=== PATIENT | female | born 1980 | race Caucasian/White ===

== ENCOUNTER 2019-10-14 08:41 | Emergency (ER) | payer MEDICARE, MEDICAID, SELFPAY ==
--- NOTE | ~2019-10-14 | XR_ITS ---
EXAMINATION: XR foot LT min 3V DATE: 10/14/2019 09:06 INDICATION: Left foot plantar surface pain. TECHNIQUE: 4 views of left foot were obtained. COMPARISON: Left foot radiograph 01/01/2018 FINDINGS: There is mild hallux valgus. No fracture. There is a benign bone island in second metatarsa l. Joint spaces are normal. There is an enthesophyte at plantar aspect of calcaneal tuberosity. IMPRESSION: 1. Mild hallux valgus. Reviewed, dictated and finalized at location A. IMPRESSION: 1. Mild hallux valgus.
[2019-10-14 08:51] VITALS: BP 93/63; PULSE 86; RESP 16; TEMP 36.6; O2SAT 100
--- NOTE | 2019-10-14 08:53 | ED.LOWEXIN ---
HPI - Extremity Injury (Lower) General Chief Complaint: Extremity Injury, Lower Stated Complaint: Injury to left foot Time Seen by Provider: 10/14/19 08:53 Source: patient History of Present Illness HPI Narrative: PATIENT PRESENTS WITH LEFT FOOT PAIN. PAIN STARTED ABOUT 3 WEEKS AGO. PATIENT IS UNSURE OF INJURY. PATIENT HAS NO BRUISING NO DEFORMITY NO SWELLING. PATIENT REPORTS PAIN TO THE ARCH AND BOTTOM OF HER FOOT WHEN SHE WALKS ON HER FOOT. MD complaint: foot injury and fall Onset (ago): day(s) (one) Injury: Left: foot Related Data Home Medications Medication Instructions Recorded Confirmed abatacept (with maltose) [Orencia 500 mg IV ONCE 10/14/19 10/14/19 (with maltose)] topiramate 200 mg PO BID 10/14/19 10/14/19 vortioxetine [Trintellix] 20 mg PO DAILY 10/14/19 10/14/19 Allergies Allergy/AdvReac Type Severity Reaction Status Date / Time erythromycin base Allergy Intermediate NAUSEA/VOMI Verified 10/14/19 09:05 TING hydromorphone Allergy Intermediate HIVES, Verified 10/14/19 09:05 HEADACHE, NAUSEA/VOMITING lamotrigine Allergy Intermediate Rash Verified 10/14/19 09:05 Sulfa (Sulfonamide Allergy Intermediate Hives / Verified 10/14/19 09:05 Antibiotics) Red Face glycerin Allergy Unknown Unknown Verified 10/14/19 09:05 acetaminophen AdvReac Intermediate Other Verified 10/14/19 09:05 NSAIDS (Non-Steroidal AdvReac Intermediate Other Verified 10/14/19 09:05 Anti-Inflamma DAIRY PRODUCTS Allergy Unknown Unknown Uncoded 10/14/19 09:05 Review of Systems Review of Systems: Narrative: CONSTITUTIONAL: Denies fever, chills, or sweats. EYES: Denies visual changes, redness, or discharge. ENT: Denies rhinorrhea, congestion, sore throat, or otalgia. CARDIOVASCULAR: Denies chest pain, palpitations, or edema. RESPIRATORY: Denies cough or dyspnea. GASTROINTESTINAL: Denies abdominal pain, nausea, vomiting, or diarrhea. GENITOURINARY: Denies dysuria or hematuria. SKIN: Denies rash or itching. MUSCULOSKELETAL: Denies back pain, joint pain, or myalgia. Pain to the arch and bottom of her left foot. NEUROLOGIC: Denies headache, numbness, or weakness. PSYCHIATRIC: Denies anxiety or depression. All systems reviewed & are unremarkable except as noted in HPI and below Constitutional: Constitutional: Reports as per HPI Eyes: Eyes: Reports as per HPI ENT: Reports system reviewed and no additional complaints, except as documented PMFSH Comments At time of signature, agree with nursing past medical, surgical, social and family history. There is no relevant family history pertinent to the presenting complaint Exam Narrative: Exam Narrative: GENERAL: Well-appearing, well-nourished, and in no acute distress. HEAD: Normocephalic, atraumatic. EYES: PERRLA and EOMI. ENT: Nares clear, no rhinorrhea or epistaxis. Mucous membranes moist. NECK: Supple. CHEST: Clear to auscultation. No respiratory distress. HEART: Regular rate and rhythm. No murmur heard. Normal peripheral pulses. ABDOMEN: Soft, nontender, nondistended, normal active bowel sounds. EXTREMITIES: Normal range of motion. No edema. NORMAL DP PULSE, NORMAL CAP REFILL. NORMAL SENSATION. NVI. NO TENDERNESS TO FOOT SENSATION NVI NORMAL DORSALIS PEDIS PULSE. NORMAL MOVEMETN OF ALL TOES. NORMAL CAPILLARY REFILL. NORMAL SKIN COLOR. NO SKIN LESIONS SKIN TNTACT NO CALF PAIN NO CALF TENDERNESS NO CALF SWELLING NORMAL ROM OF KNEE.KIN INTACT. NORMAL DP PULSE, NORMAL CAP REFILL. NORMAL SENSATION. SKIN: Warm, dry, no rash. NEURO: No focal deficits. Alert and oriented x3. Danette Coma Scale Eye Opening: Spontaneous 4 [place] Coma Scale Motor: Obeys Commands 6 [place] Coma Scale Verbal: Oriented 5 [place] Coma Scale Total 15 Course Vital Signs Vital signs: Vital Signs Temperature 36.6 C 10/14/19 08:51 Pulse Rate 86 10/14/19 08:51 Respiratory Rate 16 10/14/19 08:51 Blood Pressure 93/63 L 10/14/19 08:51 Pulse Oximetry 100 10/14/19 08:5
== END 2019-10-14 09:15 | disposition home or self-care (01) ==
PROVIDERS: Emergency Provider Nurse Practitioner Family; PCP Nurse Practitioner Family
DX: M20.12 Hallux valgus (acquired), left foot (principal); J45.909 Unspecified asthma, uncomplicated; M06.9 Rheumatoid arthritis, unspecified; M32.9 Systemic lupus erythematosus, unspecified; F41.9 Anxiety disorder, unspecified
CPT/HCPCS: 73630; 99213; G0463

== ENCOUNTER 2020-01-29 14:16 | Emergency (ER) | payer MEDICARE, MEDICAID, SELFPAY ==
[2020-01-29 14:30] VITALS: BP 133/71; PULSE 70; RESP 16; TEMP 37.2; O2SAT 100
--- NOTE | 2020-01-29 15:09 | ED.GENADULT ---
HPI - General Adult General Chief complaint: Back Pain/Injury Stated complaint: lower back pain Time Seen by Provider: 01/29/20 15:09 Source: patient and RN notes reviewed Mode of arrival: ambulatory Limitations: no limitations History of Present Illness HPI narrative: 40-year-old female presents with complaints of lower back pain for the past 2 days. Routine baclofen and oxycodone without relief. Nannette believes is related to rheumatoid arthritis. Stated she had an uncontrollable coughing and sneezing episode 2 days ago and started having lower back pain. Denies calling her primary or her RA doctor. Denies new injuries or falls. Denies radiating pain, numbness, or tingling. Denies fever or chills. No upper or lower extremity pain or weakness. Exacerbating factors consist of prolong standing and bending. Denies nausea, vomiting, or abdominal pain. Denies problems with urinating or having a bowel movement, LBM 01/28/20 per patient and normal. No flank pain or hematuria or dysuria. The patient reports she have not been diagnosed with COVID-19. The patient reports she is not waiting for the results of a COVID-19 lab test. The patient reports she do not have fever, chills, weakness, or fatigue. The patient reports she do not have a new or worsening cough or shortness of breath. Denies chest pain. The patient reports she do not have any rhinorrhea, congestion, sore throat and diarrhea. Tolerating po intake well. Denies recent traveling. Denies concerns for COVID-19 or exposures been home with limited outdoor exposure except for essential household needs and return home. At this time, patient is not suspected of having COVID-19. Some parts of this dictation were generated by voice recognition software and may contain typographical and/or grammatical inaccuracies. Related Data Home Medications Medication Instructions Recorded Confirmed Hematinic/Folic Acid 1 tab/day PO DAILY 10/14/19 01/29/20 abatacept (with maltose) [Orencia 500 mg IV ONCE 10/14/19 01/29/20 (with maltose)] albuterol sulfate 2 puff INHALATION QID 10/14/19 01/29/20 baclofen 10 mg PO TID 10/14/19 01/29/20 clonazepam 1 mg PO DAILY 10/14/19 01/29/20 galcanezumab-gnlm [Emgality Pen] 120 mg SUBCUT ONCE 10/14/19 01/29/20 hydroxychloroquine 200 mg PO DAILY 10/14/19 01/29/20 methotrexate sodium 2.5 mg PO WEEKLY 10/14/19 01/29/20 montelukast 10 mg PO DAILY 10/14/19 01/29/20 oxcarbazepine 150 mg PO BID 10/14/19 01/29/20 oxycodone 5 mg PO Q6H 10/14/19 01/29/20 prochlorperazine maleate 10 mg PO Q6H PRN 10/14/19 01/29/20 sumatriptan succinate 100 mg PO ONCE 10/14/19 01/29/20 topiramate 200 mg PO BID 10/14/19 01/29/20 vortioxetine [Trintellix] 20 mg PO DAILY 10/14/19 01/29/20 sodium chloride 0.9 % 0.9 % IV WEEKLY 01/29/20 01/29/20 Allergies Allergy/AdvReac Type Severity Reaction Status Date / Time erythromycin base Allergy Intermediate NAUSEA/VOMI Verified 01/29/20 14:27 TING hydromorphone Allergy Intermediate HIVES, Verified 01/29/20 14:27 HEADACHE, NAUSEA/VOMITING lamotrigine Allergy Intermediate Rash Verified 01/29/20 14:27 Sulfa (Sulfonamide Allergy Intermediate Hives / Verified 01/29/20 14:27 Antibiotics) Red Face glycerin Allergy Unknown Unknown Verified 01/29/20 14:27 acetaminophen AdvReac Intermediate Other Verified 01/29/20 14:27 NSAIDS (Non-Steroidal AdvReac Intermediate Other Verified 01/29/20 14:27 Anti-Inflamma DAIRY PRODUCTS Allergy Unknown Unknown Uncoded 01/29/20 14:27 Review of Systems Review of Systems: Narrative: CONSTITUTIONAL: Denies fever, chills, sweats. EYES: Denies visual changes, redness, discharge. ENT: Denies rhinorrhea, congestion, sore throat, otalgia. CARDIOVASCULAR: Denies chest pain, palpitations, edema. RESPIRATORY: Denies dyspnea, wheezing, cough. GASTROINTESTINAL: Denies abdominal pain, nausea, vomiting, diarrhea. GENITOURINARY: Denies dysuria, hematuria, abnormal discharge. SKIN: Denies rash or itc
== END 2020-01-29 15:32 | disposition home or self-care (01) ==
PROVIDERS: Emergency Provider Nurse Practitioner Family; PCP Nurse Practitioner Family
DX: M54.5 Low back pain (principal); F17.210 Nicotine dependence, cigarettes, uncomplicated; F41.9 Anxiety disorder, unspecified; J45.909 Unspecified asthma, uncomplicated; M35.00 Sjogren syndrome, unspecified; M06.9 Rheumatoid arthritis, unspecified; M32.9 Systemic lupus erythematosus, unspecified
CPT/HCPCS: 99213; G0463

== ENCOUNTER 2021-02-17 14:46 | Emergency (ER) | payer MEDICARE, MEDICAID, SELFPAY ==
--- NOTE | ~2021-02-17 | XR_ITS ---
EXAMINATION: [id number] DATE: 02/17/2021 15:27 INDICATION: Elicia and loss with audible pop after coughing TECHNIQUE: A frontal inspiratory view of the chest and 3 views of the left ribs were obtained. COMPARISON: Chest radiograph dated 09/02/2016 FINDINGS: Right internal jugular central venous port catheter with distal tip in the mid superior vena cava. Henny ngs are clear with no focal airspace opacities, pulmonary edema, pleural effusion or pneumothorax. Ca rdiomediastinal silhouette is normal. No evident rib fractures. Mild S-shaped scoliosis of the thorac ic spine. IMPRESSION: 1. No rib fracture or acute cardiopulmonary disease. Reviewed, dictated and finalized at location A.
[2021-02-17 14:50] VITALS: BP 97/63; PULSE 67; RESP 18; TEMP 36.7; O2SAT 100
[2021-02-17 15:11] VITALS: BP 97/63; PULSE 67; RESP 18; TEMP 36.7; O2SAT 100
--- NOTE | 2021-02-17 15:21 | ED.GENADULT ---
HPI - General Adult General Chief complaint: Extremity Injury, Upper Stated complaint: Pain in chest Time Seen by Provider: 02/17/21 15:02 Source: patient and RN notes reviewed Mode of arrival: ambulatory Limitations: no limitations History of Present Illness HPI narrative: Patient presents today complaining of pain to the left side of her chest. Patient has Antoinette-Danlos syndrome. She coughed once 2 days ago and felt a popping sensation on the left side of her chest. She states that she feels her ribs moving back and forth causing severe pain. Reports that she has never felt pain in this area like this before. Pain increases when she takes a deep breath or moves. Currently rates her pain 10/10. She has been using her home [place], ibuprofen at home without relief. History of lupus, rheumatoid arthritis, celiac disease, POTS MD complaint: Left chest pain Related Data Home Medications Medication Instructions Recorded Confirmed abatacept (with maltose) [Orencia 500 mg IV ONCE 10/14/19 02/17/21 (with maltose)] albuterol sulfate 2 puff INHALATION QID 10/14/19 02/17/21 baclofen 10 mg PO TID 10/14/19 02/17/21 clonazepam 1 mg PO DAILY 10/14/19 02/17/21 galcanezumab-gnlm [Emgality Pen] 120 mg SUBCUT ONCE 10/14/19 02/17/21 hydroxychloroquine 200 mg PO DAILY 10/14/19 02/17/21 montelukast 10 mg PO DAILY 10/14/19 02/17/21 oxcarbazepine 150 mg PO BID 10/14/19 02/17/21 oxycodone 5 mg PO Q6H 10/14/19 02/17/21 prochlorperazine maleate 10 mg PO Q6H PRN 10/14/19 02/17/21 sumatriptan succinate 100 mg PO ONCE 10/14/19 02/17/21 topiramate 200 mg PO BID 10/14/19 02/17/21 vortioxetine [Trintellix] 20 mg PO DAILY 10/14/19 02/17/21 sodium chloride 0.9 % 0.9 % IV WEEKLY 01/29/20 02/17/21 famotidine 20 mg PO DAILY 02/17/21 02/17/21 ondansetron 4 mg PO Q8-12H PRN 02/17/21 02/17/21 propranolol 20 mg PO BID 02/17/21 02/17/21 Allergies Allergy/AdvReac Type Severity Reaction Status Date / Time erythromycin base Allergy Intermediate NAUSEA/VOMI Verified 01/29/20 14:27 TING hydromorphone Allergy Intermediate HIVES, Verified 01/29/20 14:27 HEADACHE, NAUSEA/VOMITING lamotrigine Allergy Intermediate Rash Verified 01/29/20 14:27 Sulfa (Sulfonamide Allergy Intermediate Hives / Verified 01/29/20 14:27 Antibiotics) Red Face glycerin Allergy Unknown Unknown Verified 01/29/20 14:27 acetaminophen AdvReac Intermediate Other Verified 01/29/20 14:27 NSAIDS (Non-Steroidal AdvReac Intermediate Other Verified 01/29/20 14:27 Anti-Inflamma DAIRY PRODUCTS Allergy Unknown Unknown Uncoded 01/29/20 14:27 Review of Systems Review of Systems: CONSTITUTIONAL: Denies body aches, fever, chills, or sweats. EYES: Denies visual changes, redness, or discharge. ENT: Denies rhinorrhea, congestion, sore throat, or otalgia. CARDIOVASCULAR: Denies palpitations, or edema. RESPIRATORY: Denies cough or dyspnea. GASTROINTESTINAL: Denies abdominal pain, nausea, vomiting, or diarrhea. GENITOURINARY: Denies dysuria or hematuria. SKIN: Denies rash, itching, or wounds. MUSCULOSKELETAL: Denies back pain, joint pain, or myalgia. Left rib pain NEUROLOGIC: Denies headache, numbness, tingling, or weakness. PSYCH: Denies depression or anxiety. [facility] Past Medical History Medical History (Updated 02/17/21 @ 16:14 by Marcelle Vega, ANTHONY, ) Anorexic Anxiety Asthma Celiac disease Depression Antoinette-Danlos syndrome Hx of migraines Hx of Sjogren's disease Lupus POTS (postural orthostatic tachycardia syndrome) Rheumatoid arthritis Surgical History Surgical History (Updated 01/29/20 @ 15:21 by ANTOHNY Chou) History of hysterectomy Hx of appendectomy Family History Family History (Updated 01/29/20 @ 15:22 by ANTHONY Chou) Father Alcoholism Mother Diabetes mellitus Social History Social History (Updated 01/29/20 @ 15:23 by ANTHONY Chou) Smoking packs per day: 0.5 Smoking cigarettes per day: 10.0 Years smoked: 15
== END 2021-02-17 16:17 | disposition home or self-care (01) ==
PROVIDERS: Emergency Provider Nurse Practitioner; PCP Nurse Practitioner Family
DX: R07.89 Other chest pain (principal); F17.210 Nicotine dependence, cigarettes, uncomplicated; J45.909 Unspecified asthma, uncomplicated; F41.9 Anxiety disorder, unspecified; F32.9 Major depressive disorder, single episode, unspecified; K90.0 Celiac disease; Q79.60 Ehlers-Danlos syndrome, unspecified; M35.00 Sjogren syndrome, unspecified; M06.9 Rheumatoid arthritis, unspecified; I49.8 Other specified cardiac arrhythmias; M32.9 Systemic lupus erythematosus, unspecified
CPT/HCPCS: 71101; 99213; G0463

== ENCOUNTER 2021-11-12 09:28 | Emergency (ER) | payer MEDICARE, MEDICAID, SELFPAY ==
[2021-11-12 09:38] VITALS: BP 113/86; PULSE 94; RESP 16; TEMP 36.7; O2SAT 100
--- NOTE | 2021-11-12 09:57 | ED.ANIMALBIT ---
HPI - Animal Bite General Chief Complaint: Animal Bite Stated Complaint: Cat Scratch Time Seen by Provider: 11/12/21 09:40 Source: patient, RN notes reviewed and old records reviewed Mode of arrival: ambulatory Limitations: no limitations History of Present Illness HPI narrative: 41-year-old female presents to [facility] with complaints of multiple scratches and bite edmond which occurred to her bilateral hands last night around 2 AM and few to left forearm. Patient states her cat got out and she went to grab the cat and cat scratched and bit her. She has most scratch edmond and bites to left hand paredes aspect with bites noted to left thumb with swelling noted of thumb and thenar region of left hand. Patient reports that she had Tetanus shot 6 years ago and that she can't take any vaccinations due to her autoimmune diseases. MD complaint: animal bite and other (multiple scratch edmond also) Onset (ago): hour(s) (at 0200) Animal: cat Description of animal: household pet and immunizations UTD Mechanism: bite and scratch Location: other (Bilateral hands) Location - Extremities: Left: forearm and hand (bilateral hands Left > right) Associated symptoms: none Treatments prior to arrival: wound dressing(s) and other (cleansed with peroxide) Related Data Home Medications Medication Instructions Recorded Confirmed albuterol sulfate 2 puff INHALATION QID 10/14/19 11/12/21 baclofen 10 mg PO TID 10/14/19 11/12/21 clonazepam 1 mg PO DAILY 10/14/19 11/12/21 galcanezumab-gnlm [Emgality Pen] 120 mg SUBCUT MONTHLY 10/14/19 11/12/21 hydroxychloroquine 200 mg PO DAILY 10/14/19 11/12/21 montelukast 10 mg PO DAILY 10/14/19 11/12/21 oxcarbazepine 150 mg PO BID 10/14/19 11/12/21 oxycodone 5 mg PO Q6H 10/14/19 11/12/21 prochlorperazine maleate 10 mg PO Q6H PRN 10/14/19 11/12/21 sumatriptan succinate 100 mg PO ONCE 10/14/19 11/12/21 vortioxetine [Trintellix] 20 mg PO DAILY 10/14/19 11/12/21 sodium chloride 0.9 % 0.9 % IV WEEKLY 01/29/20 11/12/21 famotidine 20 mg PO DAILY 02/17/21 11/12/21 ondansetron 4 mg PO Q8-12H PRN 02/17/21 11/12/21 propranolol 20 mg PO BID 02/17/21 11/12/21 abatacept [Orencia ClickJect] 125 mg SUBCUT MONTHLY 11/12/21 11/12/21 cromolyn 100 mg PO QID 11/12/21 11/12/21 fluticasone propionate 2 spray INTRANASAL DAILY 11/12/21 11/12/21 promethazine 50 mg PO TID 11/12/21 11/12/21 ropinirole 1 mg PO TID 11/12/21 11/12/21 topiramate 100 mg PO TID 11/12/21 11/12/21 Allergies Allergy/AdvReac Type Severity Reaction Status Date / Time erythromycin base Allergy Intermediate NAUSEA/VOMI Verified 11/12/21 09:50 TING hydromorphone Allergy Intermediate HIVES, Verified 11/12/21 09:50 HEADACHE, NAUSEA/VOMITING lamotrigine Allergy Intermediate Rash Verified 11/12/21 09:50 Sulfa (Sulfonamide Allergy Intermediate Hives / Verified 11/12/21 09:50 Antibiotics) Red Face glycerin Allergy Unknown Unknown Verified 11/12/21 09:50 acetaminophen AdvReac Intermediate Other Verified 11/12/21 09:50 NSAIDS (Non-Steroidal AdvReac Intermediate Other Verified 11/12/21 09:50 Anti-Inflamma DAIRY PRODUCTS Allergy Unknown Unknown Uncoded 11/12/21 09:50 Review of Systems Review of Systems: CONSTITUTIONAL: Denies fever, chills, or sweats. EYES: Denies visual changes, redness, or discharge. ENT: Denies rhinorrhea, congestion, sore throat, or otalgia. CARDIOVASCULAR: Denies chest pain, palpitations, or edema. RESPIRATORY: Denies cough or dyspnea. GASTROINTESTINAL: Denies abdominal pain, nausea, vomiting, or diarrhea. GENITOURINARY: Denies dysuria or hematuria. SKIN: Positive for multiple scratches by her cat to dorsal areas of bilateral hands, bites to left thumb with swelling of left thumb and thenar region, few scratch to left forearm. MUSCULOSKELETAL: Denies back pain, joint pain, or myalgia. NEUROLOGIC: Denies headache, numbness, or weakness. PSYCHIATRIC: Positive for anxiety or depression. All systems reviewed & are unremarkable except as noted in HPI
== END 2021-11-12 10:25 | disposition home or self-care (01) ==
PROVIDERS: Emergency Provider Registered Nurse; PCP Nurse Practitioner Family
DX: S60.512A Abrasion of left hand, initial encounter (principal); S60.511A Abrasion of right hand, initial encounter; F17.210 Nicotine dependence, cigarettes, uncomplicated; W55.03XA Scratched by cat, initial encounter
CPT/HCPCS: 99213; G0463